=== PATIENT | male | born 1990 | race Two or more races ===

== ENCOUNTER 2017-02-26 21:09 | Emergency (ER) | payer OTHER ==
[~2017-02-26] VITALS: Ht 177.8 cm; Wt 97.3 kg
[2017-02-26 21:21] VITALS: BP 143/91; PULSE 69; RESP 16; O2SAT 98
--- NOTE | 2017-02-26 21:43 | ED.REPORT ---
HPI-Chest Pain Under 40 Date of Service Feb 26, 2017 ED Provider: Antolin Martel MD The pt is a 27 y/o male with a hx of HTN who present to the ED complaining of a sudden "10/10" substernal chest pain, onset 4 hours ago while he was watching TV. His pain is exacerbated with deep breathing. In the ED, his pain has gone down to 7/10 in severity. Associated sx include left arm pain and mild abdominal discomfort. He also reports bilateral bellamy pain and pain behind his knees.He has never experienced similar sx before. 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 His longest drive is usually less than a couple of hours. Nursing Notes Stated Complaint: CHEST & LEFT ARM PAIN Chief Complaint: Chest Pain Nursing Notes Reviewed: Yes Allergies: Coded Allergies: No Known Allergies (Unverified , 02/26/17) General Time Seen by MD: 21:42 Chief Complaint Chest pain Hx Obtained From: Patient Arrived By: Walk-in Sudden in Onset?: Yes Onset Occurred: 1 - 4 hours ago Symptom Duration: Since onset Location: : Substernal Quality: Painful Radiation: : Arm left Migration/Movement: Reports: None Severity: Current: Pain level 10 out of 10 Severity: Maximum: Pain level 7 out of 10 Recent Healthcare: No recent doctor visit Similar Sx Previous: No Past Medical History Past Medical History Reports: Hypertension Past Surgical History none reported Family History Heart disease adn CVA Smoking History Never Smoker Social History Alcohol Use: 1-3 per week Drug Use: Denies drug use Other Social History: Good social support 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 Ambulatory Status Independent Review of Systems Cardiovascular: Reports: Chest pain GI: Reports: Abdominal pain (mild discomfort) Musculoskeletal: Reports: Extremity pain (left arm, both shins, and pain behing the knees) Complete sys rev & neg: except as marked. Physical Exam Initial Vital Signs Vital Signs (First) Date Time Temp Pulse Resp B/P Pulse Ox O2 Delivery O2 Flow Rate FiO2 02/26/17 21:21 37.2 69 16 143/91 98 Room Air Initial VS: Reviewed, Vital signs abnormal Head / Eyes: Atraumatic, Normocephalic Neck: Supple, Non-tender, Full range of motion Abdomen / GI: Soft, Non-tender, No guarding, No rebound, No distention Extremities: Vascular intact, Neuro intact, No swelling, No tenderness Skin: Warm, Dry, No cyanosis Neurologic: Alert, Oriented, Nonfocal General/Constitutional: Awake, Alert, Well appearing, Cooperative Respiratory / Chest: Atraumatic, Breath sounds = bilat, No rales, No rhonchi, No wheezing Poor inspiration secondary to pain. Cardiovascular: Heart rate NL, Regular rhythm, Heart sounds NL, No murmurs, No rubs No lower extremity edema Lower Extremity / Pelvis / MS: Atraumatic, Full range of motion, No swelling, Non-tender, No erythema, No deformity, Neurologic intact, Vascular intact No calf tenderness. No medial thigh tenderness. Reports pain behind his knee and on shins but there is no physical exam evidence of DVT Interpretation & Diagnostics Lab Results Interpretation Result Diagram: 02/26/17213902/26/172139 Test 02/26/17 21:40 White Blood Count 9.1th/mm3 (3.8-10.1) Red Blood Count 5.36mil/mm3 (4.40-5.80) Hemoglobin 16.2g/dL (13.8-17.2) Hematocrit 47.3% (41.0-50.0) Mean Corpuscular Volume 88.2fL (81-100) Mean Corpuscular Hemoglobin 30.2pg (27.0-35.0) Mean Corpuscular Hemoglobin Concent 34.2% (32.0-37.0) Red Cell Distribution Width 12.9% (12.3-15.4) Platelet Count 210bil/L (150-400) Neutrophils (%) (Auto) 51.7% (40-74) Lymphocytes (%) (Auto) 35.8% (14-46) Monocytes (%) (Auto) 6.6% (4-12) Eosinophils (%) (Auto) 5.3% (0-5) Basophils (%) (Auto) 0.4% (0-3) Erythrocyte Sedimentation Rate 1mm/hr (0-15) D-Dimer < 0.19mg/L FEU (<0.50) Sodium Level 138mEq/L (134-144) Potassium Level 3.8mEq/L (3.5-5.2) Chloride Level 101mEq/L (97-108) Carbon Dioxide Level 21mmol/L (18-29) Blood Urea Nitrogen 13mg/dL (6-20) Creatinine 1.03mg/dL (0.76-1.27) Estimat Glomerular Filtration Rate 94mL/min (>59) Glucose Level 102mg/dL (60-99) Calcium Level 8.9mg/dL (8.5-10.1) Magnesium Level 1.9mg/dL (1.6-2.6) Total Bilirubin 0.4mg/dL (0.0-1.2) Aspartate Amino Transf (AST/SGOT) 34U/L (0-50) Alanine Aminotransferase (ALT/SGPT) 50U/L (0-44) Alkaline Phosphatase 111U/L (25-150) Troponin T 0.010ug/L (0.0-0.011) C-Reactive Protein 0.3mg/dL (0.0-0.5) Total Protein 7.3g/dL (6.4-8.4) Albumin 4.1g/dL (3.4-5.0) Lab Results Interpretation: Elevated transaminases probably secondary to alcohol consumption. D-dimer negative. Troponin 1 negative. ESR negative. CRP negative. ECG Interpretation ECG Interpretation: Normal sinus rhythm. Rate 57. ST elevation, probable normal early repol pattern. Diffuse pericarditis Time: 21:31 Interpreted by: ED physician X-Ray Chest Interpretation Chest Xray Interpretation: IMPRESSION: No radiographic evidence of acute cardiopulmonary pathology. Dictated by: Alfie Wellington M.D. on 02/26/2017 at 22:09 Approved by: Alfie Wellington M.D. on 02/26/2017 at 22:10 View: Portable, 1 view Interpretation / Wet Read by: Interpret - Radiologist Re-Eval/Medical Decision Med Decision/Clinical Course D7-year-old male with sudden onset chest pain. Pulmonary embolism, pneumonia, pneumothorax, coronary artery disease, and other serious illnesses were considered and excluded. He has diffuse ST elevation on his EKG is not concerning for STEMI but may be indicative of pericarditis. His pain responded well to anti-inflammatories. He will be treated with NSAID and follow up with his primary physician. Re-Evaluation/Progress : Time of Eval: 22:58 Re-Evaluation/Progress Note: Rechecked pt. Discussed lab results, imaging results, diagnosis and plan to discharge. Pt understands and agrees with the plan. F/U instruction and RTER warning given. All questions addressed. Counseled Regarding: Diagnosis, Lab results, Need for follow-up, When/why to return to ED Discharge & Departure Primary Impression: Chest pain Chest pain type: unspecified Qualified Code: R07.9 - Chest pain, unspecified Disposition: Home Discharge Condition All VS Reviewed: Yes Condition: Stable Patient Instructions: Acute Pericarditis (ED), Chest Pain (ED) Additional Instructions: Thank you for entrusting us with your care. Your imaging and lab results were reassuring. No dangerous cause of your pain was discovered today. This is not heart vessel disease. There is no evidence of blood clots in your lungs. There is no evidence of pneumonia or collapsed lung. The most likely cause of your pain is pericarditis, an inflammation of the lining of the heart. This is best treated with anti- inflammatory medications like ibuprofen (Advil) or naproxen (Aleve). One of your liver enzymes is elevated. This is likely due to alcohol consumption and you would benefit from decreasing your alcohol intake. You can call me at at [phone] between the hours of 9 PM and 6 AM for the next couple of nights if you have any concerns or questions. Return to the emergency room or see your primary care provider for further evaluation. See your regular doctor for follow-up in 2-3 days. Referrals: OTHER,PHYSICIAN Scribe Attestation Portions of this note were transcribed by Alvaro Sarabia. I,, personally performed the history,physical exam and medical decision-making;I reviewed and confirmed the accuracy of the information in the transcribed note. Signed by Kb Cabezas. 02/26/17 Antolin Martel MD Feb 26, 2017 21:43 Alvaro Sarabia Feb 26, 2017 22:05
[2017-02-26 22:01] LABS: BASOPHILS % (AUTO) 0.4 % (0-3); EOSINOPHILS % (AUTO) 5.3 % (0-5); MONOCYTES % (AUTO) 6.6 % (4-12); Mean Corpuscular Hemoglobin 30.2 pg (27.0-35.0); Mean Corpuscular Volume 88.2 fL (81-100); NEUTROPHILS % (AUTO) 51.7 % (40-74); Platelet Count 210 bil/L (150-400)
[2017-02-26] MEDS ORDERED: Ketorolac 15 mg/mL Inj IVPUSH ONE (22:05)
[2017-02-26 22:12] LABS: TROPONIN T 0.01 ug/L (0.0-0.011)
--- NOTE | 2017-02-26 22:12 | DRSVH ---
PROCEDURE: X-RAY CHEST ONE VIEW, PORTABLE ([id number]) INDICATIONS: CHEST PAIN TECHNIQUE: One view of the chest was acquired. COMPARISON: None. FINDINGS: Surgical changes and devices: None. Lungs and pleura: No pleural effusions or pneumothorax. Lungs are clear. Mediastinum: Mediastinal contours appear normal. Heart size is normal. Bones and chest wall: No suspicious bony lesions. Overlying soft tissues appear unremarkable. IMPRESSION: No radiographic evidence of acute cardiopulmonary pathology. Dictated by: Alfie Wellington M.D. on 02/26/2017 at 22:09 Approved by: Alfie Wellington M.D. on 02/26/2017 at 22:10
[2017-02-26 22:23] LABS: Magnesium 1.9 mg/dL (1.6-2.6)
[2017-02-26 22:58] VITALS: BP 131/76; PULSE 67; RESP 16; O2SAT 97
[2017-02-26 23:23] VITALS: BP 132/69; PULSE 64; RESP 21; O2SAT 97
== END 2017-02-26 23:24 | disposition home or self-care (01) ==
LOC: SED 21:09
DX: R07.9 Chest pain, unspecified (principal); I10 Essential (primary) hypertension
CPT/HCPCS: 36415; 71010; 80053; 83735; 84484; 85025; 85378; 85651; 86140; 93005; 96374; 99284; J1885